=== PATIENT | male | born 1970 | race Caucasian/White ===

== ENCOUNTER 2021-06-26 12:23 | Emergency (ER) | payer MEDICARE ==
[2021-06-26 12:30] VITALS: BP 151/97
[2021-06-26] MEDS ORDERED: NOVOLOG 100U100 U/ML SQ (12:32)
[2021-06-26] MEDS ORDERED: GLUCOPHAGE (12:32)
[2021-06-26] MEDS ORDERED: LEVEMIR FLEX100 U/ML SQ (13:17)
[2021-06-26] MEDS ORDERED: PERCOCET 325 MG1 TA2 PO (13:22)
== END 2021-06-26 13:30 | disposition home or self-care (01) ==
LOC: ED 12:23
DX: E11.40 Type 2 diabetes mellitus with diabetic neuropathy, unspecified (principal); Z76.0 Encounter for issue of repeat prescription; Z79.4 Long term (current) use of insulin; Z79.84 Long term (current) use of oral hypoglycemic drugs